=== PATIENT | female | born 1955 | race African-American/Black ===

== ENCOUNTER 2017-06-05 12:34 | Emergency (ER) | payer MEDICAID ==
[~2017-06-05] VITALS: Ht 170.2 cm; Wt 81.6 kg
[~2017-06-05 12:34] MED LIST: CIPRO500 MG PO; FLAGYL500 MG ORAL; IBUPROFEN600 MG ORAL; IBUPROFEN800 MG ORAL; Magnesium; TRAMADOL HCL50 MG ORAL; VIT D
[2017-06-05] MEDS ORDERED: Morphine Sulfate 2mg/ml Inj IVP ONE (13:15)
--- NOTE | 2017-06-05 13:19 | Emergency Room Report ---
History of Present Illness General Chief Complaint: General Complaint Source: Patient Present Illness HPI 61-year-old female presents with "flareup of my diverticulitis." She complains of pain to right lower quadrant for 4 days, with associated loose stools. No associated nausea or vomiting or foreign travel or fever or chills. She states that symptoms did start after her friend gave her some beet used to drink. Patient also endorsing dysuria, polyuria. According to the EMR she had diverticulitis uncomplicated in 2016, was treated with antibiotics. She is also complaining of chronic pain to right knee, requesting injection of cortisone into the knee for known rheumatoid arthritis. Denies denies any acute swelling or pain to right knee or pain with movement of right knee. Allergies: Coded Allergies: No Known Allergies (Unverified , 05/29/14) Patient History Past Medical History: other - diverticulitis, RA Past Surgical History: none Pertinent Family History: none Social History: Denies: smoking, alcohol use, drug use Now: No Immunizations: UTD Reviewed Nursing Documentation: PMH: Agreed, PSxH: Agreed Nursing Documentation-PMH Hx Asthma: Yes Hx Gastrointestinal Problems: Yes - DIVIRTICULITIS Review of Systems All Other Systems: negative except mentioned in HPI Physical Exam Vital Signs Date Time Temp Pulse Resp B/P (MAP) Pulse Ox O2 Delivery O2 Flow Rate FiO2 06/05/17 12:39 98.0 115 20 104/72 99 Room Air 98.1 Sp02 EP Interpretation: reviewed, normal General Appearance: normal inspection, well appearing, no apparent distress, alert, GCS 15, non-toxic Head: normocephalic, atraumatic Eyes: bilateral eye PERRL, bilateral eye EOMI ENT: normal ENT inspection, hearing grossly normal, normal pharynx, no angioedema, normal voice, TMs + canals normal, uvula midline, moist mucus membranes Neck: normal inspection, full range of motion, supple, thyroid normal, no meningismus, no bony tend Respiratory: normal inspection, lungs clear, normal breath sounds, no rhonchi, no respiratory distress, no retraction, no accessory muscle use, no wheezing, speaking full sentences Cardiovascular #1: regular rate, rhythm, no edema, no JVD, normal capillary refill Gastrointestinal: normal inspection, normal bowel sounds, soft, no mass, no peritonitis, non-distended, no guarding, no hernia, no pulsatile mass, other - TTP to midline and right abdomen with guarding. No rebound or peritonitis Genitourinary: no CVA tenderness Musculoskeletal: normal inspection, back normal, normal range of motion, no calf tenderness, pelvis stable, Winston's Sign negative Neurologic: normal inspection, alert, oriented x3, responsive, hi lift operator III-XII nml as tested, motor strength/tone normal, cerebellar normal, normal gait, speech normal Psychiatric: normal inspection, judgement/insight normal, mood/affect normal, no suicidal/homicidal ideation, no delusions Skin: normal inspection, normal color, no rash Lymphatic: normal inspection, no adenopathy Medical Decision Making Diagnostic Impression: Primary Impression: Abdominal pain Qualified Codes: R10.84 - Generalized abdominal pain Additional Impressions: Right knee pain Qualified Codes: M25.561 - Pain in right knee UTI (urinary tract infection) Qualified Codes: N30.01 - Acute cystitis with hematuria ER Course Right knee pain afebrile: No obvious swelling or deformity, no pain with movement on exam. Unlikely septic joint. Advised that we can't do injection of steroid into knee in ER. Abdominal pain:Urinalysis grossly infected. Mild leukocytosis After initial dose of pain medication abdomen is nonfocal More likely a UTI as cause of patient's abdominal pain specially given dysuria, polyuria ER course: Patient has remained stable during ED stay. Disposition: Patient is to be discharged to home. Prescriptions given are macrobid Patient is instructed to follow up with their primary care doctor within 5 days. Strict return precautions discussed with patient such as fever, chills, worsening/severe pain, nausea, vomiting, which may indicate severe illness. Patient verbalizes understanding and agrees with plan. Please note that this Emergency Department Report was dictated using [employer] transcriptionist technology software, occasionally this can lead to erroneous entry secondary to interpretation by the dictation equipment Last Vital Signs Date Time Temp Pulse Resp B/P (MAP) Pulse Ox O2 Delivery O2 Flow Rate FiO2 06/05/17 12:39 98.0 115 20 104/72 99 Room Air 98.1 Status: improved Disposition: HOME, SELF-CARE Scripts Nitrofurantoin Monohyd/M-Cryst* (MACROBID 100 MG*) 100 Mg Capsule 100 MG ORAL EVERY 12 HOURS for 7 Days, #14 CAP Prov: PAULA CISNEROS M.D. 06/05/17 Referrals: [facility],REFERRING (PCP) PAULA CISNEROS M.D. Jun 05, 2017 13:19
[2017-06-05 13:45] LABS: APPEARANCE,URINE CLOUDY; BILIRUBIN, URINE NEGATIVE (NEGATIVE); GLUCOSE, URINE (UA) NEGATIVE (NEGATIVE); KETONES,URINE 2+ (NEGATIVE); LEUKOCYTE ESTERASE ,URINE 3+ (NEGATIVE); NITRITE,URINE NEGATIVE (NEGATIVE); PH,URINE 6 (4.5-8.0); PROTEIN,URINE 3+ (NEGATIVE); UROBILINOGEN,URINE NORMAL MG/DL (0.0-1.0)
[2017-06-05 13:45] LABS: BASOPHILS % (AUTO) 1.2 % (0.0-2.0); EOSINOPHILS % (AUTO) 0.2 % (0.0-3.0); HEMATOCRIT 42.3 % (37.0-47.0); LYMPHOCYTES % (AUTO) 17.8 % (20.0-45.0); MEAN CORPUSCULAR VOLUME 89 FL (80-99); MONOCYTES % (AUTO) 12.9 % (1.0-10.0); NEUTROPHILS % (AUTO) 67.8 % (45.0-75.0); PLATELET COUNT 201 K/UL (150-450); RED BLOOD COUNT 4.78 M/UL (4.20-5.40); RED CELL DISTRIBUTION WIDTH 12.9 % (11.6-14.8); WHITE BLOOD COUNT 11.3 K/UL (4.8-10.8)
[2017-06-05 13:47] VITALS: BP 124/99
[2017-06-05 13:48] LABS: ANION GAP 8 mmol/L (5-15); BLOOD UREA NITROGEN 10 mg/dL (7-18); CALCIUM 9.1 MG/DL (8.5-10.1); CARBON DIOXIDE 27 MMOL/L (21-32); CHLORIDE 97 MMOL/L (98-107); CREATININE 0.8 MG/DL (0.55-1.30); POTASSIUM 4.5 MMOL/L (3.5-5.1); SODIUM 132 MMOL/L (136-145)
[2017-06-05 13:50] LABS: COLOR,URINE YELLOW
[2017-06-05 13:53] LABS: ALANINE AMINOTRANSFERASE 24 U/L (12-78); ALBUMIN/GLOBULIN RATIO 0.5 (1.0-2.7); ALKALINE PHOSPHATASE 136 U/L (46-116); ASPARTATE AMINO TRANSFERASE 36 U/L (15-37); BILIRUBIN,TOTAL 0.4 MG/DL (0.2-1.0)
[2017-06-05] MEDS ORDERED: NITROFURANTOIN100 M2 ORAL (14:16)
[2017-06-05 14:28] VITALS: BP 134/80
== END 2017-06-05 14:29 | disposition home or self-care (01) ==
LOC: EMR 13:05
DX: R10.31 Right lower quadrant pain (principal); M25.561 Pain in right knee; G89.29 Other chronic pain; N39.0 Urinary tract infection, site not specified; J45.909 Unspecified asthma, uncomplicated; M06.9 Rheumatoid arthritis, unspecified; Z87.19 Personal history of other diseases of the digestive system
CPT/HCPCS: 36415; 80053; 81003; 83605; 83690; 85025; 87086; 87181; 96374; 96375; 99284; J2270; J2405

== ENCOUNTER 2018-09-18 13:32 | Emergency (ER) | payer MEDICAID ==
[~2018-09-18] VITALS: Ht 170.2 cm; Wt 83.9 kg
[~2018-09-18 13:32] MED LIST changes: +NITROFURANTOIN100 M2 ORAL
[2018-09-18 13:55] VITALS: BP 116/72
--- NOTE | 2018-09-18 13:55 | NUR ---
ED Nurse Note: PT WALKED IN TO ER TODAY FROM HOME. AOX4. PT C/O RIGHT SIDED RIB/CHEST PAIN AND RIGHT SHOULDER PAIN, 10/10 X 2 DAYS AGO WHEN SHE FELL. PT STATES SHE LANDED ON HER RIGHT KNEE AND ALSO HIT THE RIGHT SIDE OF HER RIB/CHEST, RIGHT SHOULDER, AND RIGHT SIDE OF FACE. PT PRESENTS WITH MULTIPLE ABRASIONS TO RIGHT SIDE OF FACE ALONG WITH BRUISING AROUND ORBIT. PT ALSO PRESENTS WITH SWELLING TO UPPER LIP. NO OBVIOUS INJURY OR BRUISING TO CHEST/RIB. GAIT STEADY. PT DENIES DIZZINESS, NAUSEA, OR VOMITING. PT DENIES LOC.
[2018-09-18] MEDS ORDERED: oxyCODONE HCL/Acetaminophen 5/325mg ORAL ONE (14:00)
--- NOTE | 2018-09-18 14:04 | NUR ---
ED Nurse Note: PT TO CT VIA IGNACIO.
--- NOTE | 2018-09-18 14:19 | NUR ---
ED Nurse Note: PT BACK FROM CT VIA [facility]NACIO.
--- NOTE | 2018-09-18 14:47 | Diagnostic Imaging Report ---
EXAM: CT Chest Without Intravenous Contrast CLINICAL HISTORY: PAIN TECHNIQUE: Axial computed tomography images of the chest without intravenous contrast. CTDI is 20.73 mGy and DLP is 723.59 mGy-cm. One or more of the following dose reduction techniques were used: automated exposure control, adjustment of the mA and/or kV according to patient size, use of iterative reconstruction technique. COMPARISON: None FINDINGS: Lung parenchyma: Mild dependent bibasilar atelectasis. Subsegmental atelectasis in the lingula and right middle lobe. No focal consolidation. No nodule. Pleural space: Normal. No pleural effusion or pneumothorax. Mediastinum: Normal. No mass or lymphadenopathy. Heart: Normal. No cardiomegaly or pericardial effusion. Aorta: Mild atherosclerotic changes. No aneurysm. Airways: Patent. Bones: Osteopenia. Degenerative changes of the spine. No bony lesion or acute fracture. Muscles: No mass. Subcutaneous tissues: Normal. Upper abdomen: Diverticulosis partially visualized. IMPRESSION: No acute abnormality of the chest.
--- NOTE | 2018-09-18 14:51 | Diagnostic Imaging Report ---
EXAM: CT Head Without Intravenous Contrast CLINICAL HISTORY: PAIN TECHNIQUE: Axial computed tomography images of the head/brain without intravenous contrast. CTDI is 70.38 mGy and DLP is 1344.19 mGy-cm. One or more of the following dose reduction techniques were used: automated exposure control, adjustment of the mA and/or kV according to patient size, use of iterative reconstruction technique. COMPARISON: None FINDINGS: Brain: No acute infarct or hemorrhage. No extra-axial fluid collection. No mass effect or midline shift. Prominent calcifications in the basal ganglia, thalami, and cerebellar hemispheres. Ventricles and sulci: Normal. No ventriculomegaly or intraventricular hemorrhage. Skull: Normal. No bony lesion or fracture. Subcutaneous tissues: Normal. Sinuses: Normal. No air-fluid levels or mucosal thickening. Mastoid air cells: Normal. Orbits: Grossly unremarkable. IMPRESSION: No acute intracranial abnormality. Prominent calcifications of the basal ganglia, thalami, and cerebellar hemispheres.
[2018-09-18] MEDS ORDERED: IBUPROFEN400 M1 PO (14:59)
[2018-09-18] MEDS ORDERED: PERCOCET 5-3251 EACH ORAL (14:59)
--- NOTE | 2018-09-18 15:02 | NUR ---
ED Nurse Note: PT LAYING PEACEFULLY IN BED IN NAD. AOX4. PRESCRIPTIONS AND DISCHARGE PAPERWORK EXPLAINED TO PT. PT VERBALIZES UNDERSTANDING AND ALL QUESTIONS ANSWERED. PRESCRIPTIONS AND DISCHARGE PAPERWORK GIVEN TO PT AND ID WRISTBAND REMOVED. PT WALKED OUT OF ER WITH STEADY GAIT AND ALL BELONGINGS.
[2018-09-18 15:05] VITALS: BP 122/78
[2018-09-18] MEDS ORDERED: Tetanus/Diptheria/Pertussis IM ONE (15:15)
--- NOTE | 2018-09-18 17:34 | Emergency Room Report ---
History of Present Illness General Chief Complaint: Multiple Trauma/Fall Source: Medical Record Present Illness HPI Patient is a 63-year-old female presented after increased right-sided chest discomfort after a fall. Patient reports having severe pain with movement. She reports having fallen 2 days ago. She reports having initially struck the right side of her head and face. She reports having pain worse with movement and deep breath. She denies any hemoptysis. She had not been taking any pain medication. She denies recent tetanus vaccine.Patient denies any productive cough. She states she struck her face on a curb. Allergies: Coded Allergies: No Known Allergies (Unverified , 05/29/14) Patient History Past Medical History: see triage record Reviewed Nursing Documentation: PMH: Agreed; PSxH: Agreed Nursing Documentation-PMH Past Medical History: No History, Except For Hx Asthma: Yes Hx Gastrointestinal Problems: Yes - DIVIRTICULITIS Review of Systems All Other Systems: negative except mentioned in HPI Physical Exam Vital Signs Date Time Temp Pulse Resp B/P (MAP) Pulse Ox O2 Delivery O2 Flow Rate FiO2 09/18/18 13:36 97.9 87 18 120/78 (92) 96 Room Air Sp02 EP Interpretation: reviewed, normal General Appearance: normal inspection, alert, no apparent distress, GCS 15 Head: normocephalic, atraumatic Eyes: PERRL, EOMI, lids + conjunctiva normal, no hyphema, no racoon eyes, other - right side facial swelling ENT: TMs + canals normal, no schuster signs, other - superficial lip laceration partially healed Neck: trach midline, no bony tend, full range of motion without pain Respiratory: effort normal, no retractions, clear to auscultation, chest symmetrical, palpation of chest normal, speaking in full sentences Cardiovascular: regular rate, rhythm, no JVD Cardiovascular #2: 2+ radial (R), 2+ radial (L), 2+ dorsalis pedis (R), 2+ dorsalis pedis (L) Gastrointestinal: normal inspection, non-tender, non-distended, no rebound/ guarding, normal bowel sounds Musculoskeletal: normal ROM, non-tender, back normal Skin: no lacerations, normal palpation, other - facial abrasion Lymphatic: normal inspection Neurologic: normal inspection, CN II-XII intact, oriented x3, sensory intact, motor strength/tone normal, normal speech Psychiatric: normal inspection, memory normal, mood normal, no suicidal/ homicidal ideation Medical Decision Making Diagnostic Impression: Primary Impression: Facial contusion Additional Impressions: Atelectasis Chest wall contusion ER Course Patient presented after a fall. Differential diagnosis include was not limited to rib fracture, pneumonia, intracranial hemorrhage among others. CT of the head read by radiology showed basal ganglia calcifications without any evidence of acute hemorrhage or fracture. CT of chest read by radiology showed no evidence of acute pathology. Patient was noted to have some significant tenderness and was given medications for pain. She is also noted to have some right middle lobe atelectasis. Patient was advised to follow-up with her primary care physician for recheck. She is to return if any worsening of condition or other concerns. Last Vital Signs Date Time Temp Pulse Resp B/P (MAP) Pulse Ox O2 Delivery O2 Flow Rate FiO2 09/18/18 15:05 98.3 82 17 122/78 99 Room Air Status: improved Disposition: HOME, SELF-CARE Condition: Stable Scripts Ibuprofen (Ibuprofen) 400 Mg Tablet 400 MG PO EVERY 8 HOURS, #30 TAB Prov: Phu Baumann MD 09/18/18 Oxycodone/Acetaminophen 5-325* (PERCOCET 5-325 MG TABLET*) 1 Each Tablet 1 TAB ORAL Q8H PRN for For Pain, #20 TAB 0 Refills Prov: Phu Baumann MD 09/18/18 Patient Instructions: Head Injury, Adult, Atelectasis, Adult, Facial or Scalp Contusion, Chest Contusion Phu Baumann MD Sep 18, 2018 17:34
== END 2018-09-18 15:07 | disposition home or self-care (01) ==
LOC: EMR 14:00
DX: S00.83XA Contusion of other part of head, initial encounter (principal); S20.219A Contusion of unspecified front wall of thorax, initial encounter; J98.11 Atelectasis; W19.XXXA Unspecified fall, initial encounter; Y92.9 Unspecified place or not applicable
CPT/HCPCS: 70450; 71250; 99284